=== PATIENT | male | born 1975 | race African-American/Black ===

== ENCOUNTER 2017-04-01 12:18 | Emergency (ER) | payer MEDICAID ==
[~2017-04-01] VITALS: Ht 182.9 cm; Wt 80.0 kg
[2017-04-01 13:01] VITALS: BP 123/68
== END 2017-04-01 18:01 | disposition left against medical advice (07) ==
LOC: ER 12:18
DX: R10.9 Unspecified abdominal pain (principal); R11.2 Nausea with vomiting, unspecified; R19.7 Diarrhea, unspecified; Z53.21 Procedure and treatment not carried out due to patient leaving prior to being seen by health care provider